=== PATIENT | female | born 1980 | race Caucasian/White ===

== ENCOUNTER 2017-09-15 09:59 | Emergency (ER) | payer BC ==
[~2017-09-15] VITALS: Ht 170.2 cm; Wt 58.1 kg
[~2017-09-15 09:59] MED LIST: ALBIPROI; AMOCLA875 PO; CODACE30; GUAPHELA PO; NAPR550
[2017-09-15] MEDS ORDERED: BIRTH CONTROL (10:21)
[2017-09-15] MEDS ORDERED: Zofran Odt4 MG SL (10:58)
[2017-09-15] MEDS ORDERED: Cheratussin AC118 ML PO (10:58)
== END 2017-09-15 11:10 | disposition home or self-care (01) ==
LOC: ER 09:59
DX: J11.1 Influenza due to unidentified influenza virus with other respiratory manifestations (principal); Z88.2 Allergy status to sulfonamides
CPT/HCPCS: 99283

== ENCOUNTER 2017-09-18 13:47 | Emergency (ER) | payer BC ==
[~2017-09-18] VITALS: Ht 170.2 cm; Wt 58.1 kg
[~2017-09-18 13:47] MED LIST changes: +BIRTH CONTROL; +Cheratussin AC118 ML PO; +Zofran Odt4 MG SL
[2017-09-18 14:18] LABS: BASOPHILS ABSOLUTE AUTO 0.01 K/mm3 (0.00-0.23); BASOPHILS PERCENT AUTO 0 % (0-2); EOSINOPHILS PERCENT AUTO 0 % (0-6); Hematocrit 43.4 % (33.0-51.0); Hemoglobin 15.4 g/dL (11.5-16.0); IMMATURE GRAN ABSOLUTE AUTO 0.01 K/mm3 (0.00-0.10); IMMATURE GRAN PERCENT AUTO 0 % (0-1); LYMPHOCYTES ABSOLUTE AUTO 1.03 K/mm3 (0.84-5.20); LYMPHOCYTES PERCENT AUTO 15 % (21-46); MONOCYTES ABSOLUTE AUTO 0.34 K/mm3 (0.16-1.47); MONOCYTES PERCENT AUTO 5 % (4-13); Mean Corpuscular HGB 30.9 pg (26.0-34.0); Mean Corpuscular HGB Conc 35.5 g/dL (31.5-36.5); Mean Corpuscular Volume 87 fL (80-100); Mean Platelet Volume 10.4 fL (9.1-12.4); NEUTROPHILS ABSOLUTE AUTO 5.58 K/mm3 (1.96-9.15); NEUTROPHILS PERCENT AUTO 80 % (41-73); Platelet Count 166 K/mm3 (150-400); RDW Coefficient Variation 12.6 % (11.7-14.2); RDW Standard Deviation 40.6 fL (35.1-46.3); Red Blood Cell Count 4.98 M/mm3 (3.80-5.20); White Blood Cell Count 6.97 K/mm3 (4.00-11.30)
[2017-09-18 14:39] LABS: Alanine Aminotransfer (ALT/SGP 18 U/L (12-78); Alk Phos 39 U/L (50-136); Anion Gap 12 mmol/L (6-16); Aspartate Aminotrans (AST/SGOT 20 U/L (12-37); Bilirubin, Total 0.4 mg/dL (0.1-1.0); Blood Urea Nitrogen 13 mg/dL (8-24); Bun/Creatinine Ratio 25.7 (12.0-20.0); CO2, Blood 24 mmol/L (21-32); Calcium, Blood 8.8 mg/dL (8.5-10.1); Chloride, Blood 99 mmol/L (98-108); Creatinine, Blood 0.51 mg/dL (0.40-1.00); Globulin, Blood 4.2 g/dL (2.2-4.0); Glomerular Filtration Rate >60 (60-); Glucose, Blood 86 mg/dL (70-99); Potassium, Blood 3.5 mmol/L (3.5-5.5); Sodium, Blood 135 mmol/L (136-145); Total Protein, Blood 8.2 g/dL (6.4-8.2)
[2017-09-18 18:56] LABS: Source, Urine Clean Catch
[2017-09-18 19:00] LABS: Appearance, Urine Clear (Clear); Bilirubin, Urine Neg (Neg); Blood, Urine 4+ (Neg); Color, Urine Yellow (P-Yellow); Glucose Qualitative, Urine Neg (Neg); Ketones, Urine 4+ (Neg); Leukocyte Esterase, Urine Neg (Neg); Nitrite, Urine Neg (Neg); Protein, Urine 2+ (Neg); Specific Gravity, Urine 1.015 (1.003-1.022); Urobilinogen, Urine NORM (Normal); pH, Urine 6.5 (5.0-8.0)
[2017-09-18 19:09] LABS: White Blood Cells, Urine 0-2 /hpf (0-5)
[2017-09-18 19:10] LABS: Bacteria Few /hpf; Squamous Epithelial Cells Few /hpf (Few)
[2017-09-18] MEDS ORDERED: AZIT250 PO (20:24)
== END 2017-09-18 20:32 | disposition home or self-care (01) ==
LOC: ER 13:47
PROVIDERS: Emergency Medicine
DX: J18.9 Pneumonia, unspecified organism (principal); Z88.2 Allergy status to sulfonamides; Z88.8 Allergy status to other drugs, medicaments and biological substances; Z79.899 Other long term (current) drug therapy
CPT/HCPCS: 36415; 71046; 74176; 80053; 81001; 81025; 83690; 85025; 96361; 96374; 96375; 96376; 99284; J1885; J2405; J7030

== ENCOUNTER → 2017-10-11 | Outpatient (CLI) | payer BC ==
[~2017-10-11] MED LIST changes: +AZIT250 PO
== END | disposition home or self-care (01) ==
LOC: LAB 10:30
DX: R10.9 Unspecified abdominal pain (principal)
CPT/HCPCS: 87086

== ENCOUNTER → 2018-10-23 | Outpatient (CLI) | payer BC ==
[2018-10-27 13:08] LABS: CHLAMYDIA TRACHOMATIS, NAA Negative (Negative); NEISSERIA GONORRHOEAE, NAA Negative (Negative)
== END ==
LOC: LAB 15:49 → LAB SHORT 15:49
PROVIDERS: Nurse Practitioner Family
DX: Z11.3 Encounter for screening for infections with a predominantly sexual mode of transmission (principal)
CPT/HCPCS: 87491; 87591

== ENCOUNTER 2019-03-18 08:47 | Day surgery (SDC) | payer BC, OTHER ==
[~2019-03-18] VITALS: Ht 167.6 cm; Wt 58.9 kg
--- NOTE | 2019-03-18 10:38 | NUR ---
03/18/19 1038 Raya Ontiveros SIMETHICONE USED DURING PROCEDURE.
== END 2019-03-18 11:20 | disposition home or self-care (01) ==
LOC: ORSCSDS 08:47
PROVIDERS: Internal Medicine Gastroenterology
PROC: 0DBE8ZX Excision of Large Intestine, Via Natural or Artificial Opening Endoscopic, Diagnostic (ICD-10-PCS; principal; 2019-03-18 10:15)
DX: K92.1 Melena (principal); R19.7 Diarrhea, unspecified; Z80.0 Family history of malignant neoplasm of digestive organs; K21.9 Gastro-esophageal reflux disease without esophagitis; K64.8 Other hemorrhoids; J45.909 Unspecified asthma, uncomplicated; Z79.899 Other long term (current) drug therapy
CPT/HCPCS: 88305; J2704; J7120

== ENCOUNTER → 2019-10-01 | Outpatient (CLI) | payer BC, OTHER | LOC: LAB 15:57 → LAB SHORT 15:57 | DX: N39.0 Urinary tract infection, site not specified (principal) | CPT/HCPCS: 87077; 87086; 87186 ==

== ENCOUNTER → 2020-01-17 | Outpatient (CLI) | payer BC, OTHER | END | disposition home or self-care (01) | LOC: LAB SHORT 10:59 → LAB EV 10:59 | DX: N39.0 Urinary tract infection, site not specified (principal) | CPT/HCPCS: 87077; 87086; 87186 ==

== ENCOUNTER → 2020-06-13 | Outpatient (CLI) | payer BC, OTHER ==
[~2020-06-13] MED LIST changes: +ACET500; +ALBU90OI INH; +Apple Cider Vi300 MG PO; +IBUP400; +PRENATAL TABLE1 EAC2 PO; +Vitamin C100 M1 PO
== END | disposition home or self-care (01) ==
LOC: LAB SHORT 07:39 → PLD 07:39
DX: N92.0 Excessive and frequent menstruation with regular cycle (principal)
CPT/HCPCS: 88305

== ENCOUNTER 2020-06-30 06:04 | Day surgery (SDC) | payer BC, OTHER ==
[~2020-06-30] VITALS: Ht 167.6 cm; Wt 62.9 kg
[~2020-06-30 06:04] MED LIST changes: -ACET500; -IBUP400
--- NOTE | 2020-06-30 07:10 | NUR ---
History, Chart, Medications and Allergies reviewed before start of procedure.Patient confirms NPO status and agrees with scheduled surgery. Patient reports completing Chlorhexadine shower X2 prior to admission to hospital.Surgical site prepped with 2% Chlorhexidine cloth wipe.
--- NOTE | 2020-06-30 11:47 | NUR ---
PAIN/NAUSEA PT NAUSEATED UPON ARRIVING TO FLOOR. MEDICATED PER ORDERS W/4MG IV ZOFRAN. PT'S PAIN TO ABD BEGAN TO INCREASE AND RATED AT 8/10. PT STATED CANNOT TAKE NARCOTICS OR TORADOL THEY CAUSE N/V. MEDICATED PER ORDERS W/OT DOSE OR 800 MG IBUPROFEN. PT REFUSED CRACKERS AND JELLO STATING DIDN'T TASTE GOOD. NOW SLEEPING.
--- NOTE | 2020-06-30 14:21 | NUR ---
NOTIFIED DR [facility] NOT STOCK AYGESTIN. PT HAS PRESCRIPTION AWAITING AT PHARMACY.
[2020-06-30] MEDS ORDERED: IBUP400 ×2 (15:31)
[2020-06-30] MEDS ORDERED: ACET500 ×2 (15:32)
--- NOTE | 2020-06-30 16:10 | NUR ---
pt reported nausea. medicated per orders w/zofran. provided warm blankets.
--- NOTE | 2020-06-30 16:41 | NUR ---
N/V PREPARING TO DC PT AND SHE BEGAN TO GET NAUSEATED. MEDICATED PER ORDERS W/4 MG IV ZOFRAN. WHEN WENT BACK TO CHECK ON PT, FOUND TEARFUL AND HAD 300 ML EMESIS. MEDICATED PER ORDERS W/12.5 MG IV PHENERGAN. PROVIDED NEW ICE PACK FOR NECK. PT RESTING BEFORE DC'ING. PT WISHES TO GO HOME.
--- NOTE | 2020-06-30 17:15 | NUR ---
PT'S NAUSEA IMPROVED. WANTED TO BE DC'D HOME DC'D IV, CATHETER INTACT. REVIEWED DC INSTRUCTIONS W/PT; VERBALIZED UNDERSTANDING. PT LEFT UNIT IN WC W/POSSESSIONS AND DC PAPERWORK IN HAND ACCOMAPNIED BY SPOUSE.
== END 2020-06-30 17:06 | disposition home or self-care (01) ==
LOC: ORSCMMR 06:04 → ORD 07:30 → ORSCMMR 07:30 → SURS 10:22 → ORSCMMR 17:06
PROVIDERS: Obstetrics & Gynecology
PROC: 0UT24ZZ Resection of Bilateral Ovaries, Percutaneous Endoscopic Approach (ICD-10-PCS; principal; 2020-06-30 07:30)
PROC: 8E0W4CZ Robotic Assisted Procedure of Trunk Region, Percutaneous Endoscopic Approach (ICD-10-PCS; principal; 2020-06-30 07:30)
PROC: 0UT94ZZ Resection of Uterus, Percutaneous Endoscopic Approach (ICD-10-PCS; principal; 2020-06-30 07:30)
PROC: 0UT74ZZ Resection of Bilateral Fallopian Tubes, Percutaneous Endoscopic Approach (ICD-10-PCS; principal; 2020-06-30 07:30)
DX: N80.3 Endometriosis of pelvic peritoneum (principal); N92.0 Excessive and frequent menstruation with regular cycle; N94.6 Dysmenorrhea, unspecified; J45.909 Unspecified asthma, uncomplicated; Z79.899 Other long term (current) drug therapy
CPT/HCPCS: 58571; S2900; 88307; A9270; J0171; J0690; J1100; J1885; J2250; J2405; J2550; J2704; J3010; J7120

== ENCOUNTER → 2020-08-11 | Outpatient (CLI) | payer BC ==
[~2020-08-11] MED LIST changes: +ACET500; +IBUP400; +ONDA4ODT MM
== END | disposition home or self-care (01) ==
LOC: LAB 15:30
DX: N76.0 Acute vaginitis (principal)
CPT/HCPCS: 87070; 87076; 87205

== ENCOUNTER 2021-04-01 07:52 | Emergency (ER) | payer BC ==
[~2021-04-01] VITALS: Ht 170.2 cm; Wt 59.0 kg
[~2021-04-01 07:52] MED LIST changes: -ONDA4ODT MM
[2021-04-01 08:21] LABS: Source, Urine Clean Catch
[2021-04-01 08:32] LABS: Appearance, Urine Clear (Clear); Bilirubin, Urine Neg (Neg); Blood, Urine Neg (Neg); Color, Urine Yellow (P-Yellow); Glucose Qualitative, Urine Neg (Neg); Ketones, Urine Neg (Neg); Leukocyte Esterase, Urine Neg (Neg); Nitrite, Urine Neg (Neg); Protein, Urine Neg (Neg); Specific Gravity, Urine 1.015 (1.003-1.022); Urobilinogen, Urine NORM (Normal)
[2021-04-01 08:46] LABS: BASOPHILS ABSOLUTE AUTO 0.04 K/mm3 (0.00-0.23); BASOPHILS PERCENT AUTO 0 % (0-2); EOSINOPHILS ABSOLUTE AUTO 0.04 K/mm3 (0.00-0.68); EOSINOPHILS PERCENT AUTO 0 % (0-6); Hematocrit 41.1 % (33.0-51.0); IMMATURE GRAN ABSOLUTE AUTO 0.01 K/mm3 (0.00-0.10); IMMATURE GRAN PERCENT AUTO 0 % (0-1); LYMPHOCYTES ABSOLUTE AUTO 1.19 K/mm3 (0.84-5.20); LYMPHOCYTES PERCENT AUTO 13 % (21-46); MONOCYTES PERCENT AUTO 3 % (4-13); Mean Corpuscular HGB 30.7 pg (26.0-34.0); Mean Corpuscular HGB Conc 34.1 g/dL (31.5-36.5); Mean Corpuscular Volume 90 fL (80-100); Mean Platelet Volume 10.8 fL (9.1-12.4); NEUTROPHILS ABSOLUTE AUTO 7.97 K/mm3 (1.96-9.15); NEUTROPHILS PERCENT AUTO 84 % (41-73); Platelet Count 242 K/mm3 (150-400); RDW Coefficient Variation 13.1 % (11.7-14.2); RDW Standard Deviation 43.5 fL (35.1-46.3); Red Blood Cell Count 4.56 M/mm3 (3.80-5.20); White Blood Cell Count 9.55 K/mm3 (4.00-11.30)
[2021-04-01 09:02] LABS: Alanine Aminotransfer (ALT/SGP 15 U/L (12-78); Albumin, Blood 4.1 g/dL (3.4-5.0); Albumin/Globulin Ratio 1.2 (0.8-1.8); Alk Phos 34 U/L (50-136); Anion Gap 4 mmol/L (6-16); Aspartate Aminotrans (AST/SGOT 6 U/L (12-37); Bilirubin, Total 0.4 mg/dL (0.1-1.0); Blood Urea Nitrogen 19 mg/dL (8-24); Bun/Creatinine Ratio 29.3 (12.0-20.0); CO2, Blood 25 mmol/L (21-32); Calcium, Blood 8.7 mg/dL (8.5-10.1); Chloride, Blood 111 mmol/L (98-108); Creatinine, Blood 0.65 mg/dL (0.40-1.00); Globulin, Blood 3.5 g/dL (2.2-4.0); Glomerular Filtration Rate >60 (60-); Glucose, Blood 99 mg/dL (70-99); Potassium, Blood 3.9 mmol/L (3.5-5.5); Sodium, Blood 140 mmol/L (136-145); Total Protein, Blood 7.6 g/dL (6.4-8.2)
[2021-04-01] MEDS ORDERED: ONDA4ODT MM (09:18)
== END 2021-04-01 09:23 | disposition home or self-care (01) ==
LOC: ER 07:52
PROVIDERS: Emergency Medicine; Physician Assistant
DX: K29.70 Gastritis, unspecified, without bleeding (principal); Z88.2 Allergy status to sulfonamides; Z88.5 Allergy status to narcotic agent; Z79.899 Other long term (current) drug therapy
CPT/HCPCS: 36415; 80053; 81003; 83690; 85025; 99284; A9270

== ENCOUNTER → 2021-04-21 | Outpatient (CLI) | payer BC ==
[~2021-04-21] MED LIST changes: +ONDA4ODT MM
== END | disposition home or self-care (01) ==
LOC: LAB 12:00 → LAB SHORT 12:00
DX: R31.9 Hematuria, unspecified (principal)
CPT/HCPCS: 87077; 87086; 87186

== ENCOUNTER → 2021-08-17 | Outpatient (CLI) | payer BC ==
[~2021-08-17] MED LIST changes: +BELPTAB PO; +Cipro500 MG PO; +ESTRADIOL (TWI1 EAC1 TD; +Flagyl500 MG PO; +Nexium40 MG PO; +PHENERGAN25 MG PR; +PROG100 PO
== END ==
LOC: LAB SHORT 18:20
DX: K21.9 Gastro-esophageal reflux disease without esophagitis (principal); R10.13 Epigastric pain
CPT/HCPCS: 87338

== ENCOUNTER 2021-08-18 07:38 | Emergency (ER) | payer BC ==
[~2021-08-18] VITALS: Ht 170.2 cm; Wt 61.2 kg
[~2021-08-18 07:38] MED LIST changes: -BELPTAB PO; -Cipro500 MG PO; -ESTRADIOL (TWI1 EAC1 TD; -Flagyl500 MG PO; -Nexium40 MG PO; -PHENERGAN25 MG PR; -PROG100 PO
[2021-08-18] MEDS ORDERED: ESTRADIOL (TWI1 EAC1 TD (08:14)
[2021-08-18] MEDS ORDERED: PROG100 PO (08:15)
[2021-08-18] MEDS ORDERED: Nexium40 MG PO (08:18)
[2021-08-18 08:41] LABS: Source, Urine Clean Catch
[2021-08-18 08:52] LABS: BASOPHILS ABSOLUTE AUTO 0.04 K/mm3 (0.00-0.23); BASOPHILS PERCENT AUTO 1 % (0-2); EOSINOPHILS ABSOLUTE AUTO 0.09 K/mm3 (0.00-0.68); EOSINOPHILS PERCENT AUTO 2 % (0-6); Hemoglobin 14.6 g/dL (11.5-16.0); IMMATURE GRAN ABSOLUTE AUTO 0.01 K/mm3 (0.00-0.10); IMMATURE GRAN PERCENT AUTO 0 % (0-1); LYMPHOCYTES ABSOLUTE AUTO 1.43 K/mm3 (0.84-5.20); LYMPHOCYTES PERCENT AUTO 26 % (21-46); MONOCYTES ABSOLUTE AUTO 0.34 K/mm3 (0.16-1.47); MONOCYTES PERCENT AUTO 6 % (4-13); Mean Corpuscular HGB 30.2 pg (26.0-34.0); Mean Corpuscular Volume 89 fL (80-100); Mean Platelet Volume 10.2 fL (9.1-12.4); NEUTROPHILS ABSOLUTE AUTO 3.63 K/mm3 (1.96-9.15); NEUTROPHILS PERCENT AUTO 66 % (41-73); Platelet Count 303 K/mm3 (150-400); RDW Coefficient Variation 12.7 % (11.7-14.2); RDW Standard Deviation 41.4 fL (35.1-46.3); Red Blood Cell Count 4.83 M/mm3 (3.80-5.20); White Blood Cell Count 5.54 K/mm3 (4.00-11.30)
[2021-08-18 09:07] LABS: Appearance, Urine Clear (Clear); Bilirubin, Urine Neg (Neg); Blood, Urine 1+ (Neg); Color, Urine Yellow (P-Yellow); Glucose Qualitative, Urine Neg (Neg); Ketones, Urine Neg (Neg); Leukocyte Esterase, Urine Neg (Neg); Nitrite, Urine Neg (Neg); Protein, Urine Neg (Neg); Specific Gravity, Urine 1.015 (1.003-1.022); Urobilinogen, Urine NORM (Normal)
[2021-08-18 09:07] LABS: Alanine Aminotransfer (ALT/SGP 19 U/L (12-78); Albumin, Blood 4.1 g/dL (3.4-5.0); Albumin/Globulin Ratio 1.1 (0.8-1.8); Alk Phos 37 U/L (50-136); Anion Gap 7 mmol/L (6-16); Aspartate Aminotrans (AST/SGOT 10 U/L (12-37); Bilirubin, Total 0.5 mg/dL (0.1-1.0); Blood Urea Nitrogen 7 mg/dL (8-24); Bun/Creatinine Ratio 10.6 (12.0-20.0); CO2, Blood 25 mmol/L (21-32); Calcium, Blood 9.4 mg/dL (8.5-10.1); Chloride, Blood 110 mmol/L (98-108); Creatinine, Blood 0.66 mg/dL (0.40-1.00); Globulin, Blood 3.6 g/dL (2.2-4.0); Glomerular Filtration Rate >60 (60-); Glucose, Blood 94 mg/dL (70-99); Potassium, Blood 3.7 mmol/L (3.5-5.5); Sodium, Blood 142 mmol/L (136-145); Total Protein, Blood 7.7 g/dL (6.4-8.2)
[2021-08-18 09:30] LABS: Red Blood Cells, Urine 0-2 /hpf (0-2); Squamous Epithelial Cells Rare /hpf (Few)
[2021-08-18] MEDS ORDERED: Flagyl500 MG PO (09:30)
[2021-08-18] MEDS ORDERED: Cipro500 MG PO (09:30)
[2021-08-18] MEDS ORDERED: PHENERGAN25 MG PR (09:30)
[2021-08-18] MEDS ORDERED: BELPTAB PO (09:30)
[2021-08-18 09:31] LABS: Bacteria Rare /hpf; Yeast/Fungi Urine Rare /hpf
== END 2021-08-18 10:48 | disposition home or self-care (01) ==
LOC: ER 07:38
PROVIDERS: Physician Assistant
DX: K52.9 Noninfective gastroenteritis and colitis, unspecified (principal); Z88.2 Allergy status to sulfonamides; Z88.5 Allergy status to narcotic agent; Z79.899 Other long term (current) drug therapy
CPT/HCPCS: 36415; 74177; 80053; 81001; 83690; 83735; 85025; 96374; 99285-25; J2405; J7030; Q9967

== ENCOUNTER 2021-09-14 12:27 | Day surgery (SDC) | payer OTHER ==
[~2021-09-14] VITALS: Ht 170.2 cm; Wt 98.0 kg
[~2021-09-14 12:27] MED LIST changes: +BELPTAB PO; +Cipro500 MG PO; +ESTRADIOL (TWI1 EAC1 TD; +Flagyl500 MG PO; +Nexium40 MG PO; +PHENERGAN25 MG PR; +PROG100 PO
== END 2021-09-14 14:38 | disposition home or self-care (01) ==
LOC: ORSCSDS 12:27
PROVIDERS: Student in an Organized Health Care Education/Training Program
PROC: 0DB58ZX Excision of Esophagus, Via Natural or Artificial Opening Endoscopic, Diagnostic (ICD-10-PCS; principal; 2021-09-14 13:45)
PROC: 0DB68ZX Excision of Stomach, Via Natural or Artificial Opening Endoscopic, Diagnostic (ICD-10-PCS; principal; 2021-09-14 13:45)
PROC: 0DB48ZX Excision of Esophagogastric Junction, Via Natural or Artificial Opening Endoscopic, Diagnostic (ICD-10-PCS; principal; 2021-09-14 13:45)
PROC: 0DB98ZX Excision of Duodenum, Via Natural or Artificial Opening Endoscopic, Diagnostic (ICD-10-PCS; principal; 2021-09-14 13:45)
DX: K21.9 Gastro-esophageal reflux disease without esophagitis (principal); R11.2 Nausea with vomiting, unspecified; R13.10 Dysphagia, unspecified; Z80.0 Family history of malignant neoplasm of digestive organs; R19.7 Diarrhea, unspecified; K44.9 Diaphragmatic hernia without obstruction or gangrene; Z79.899 Other long term (current) drug therapy
CPT/HCPCS: 88305; 88342; J2704; J7120

== ENCOUNTER → 2022-08-10 | Outpatient (CLI) | payer OTHER ==
[2022-08-10 13:33] LABS: Source, Urine Clean Catch
[2022-08-10 16:05] LABS: Appearance, Urine Hazy (Clear); Bilirubin, Urine Neg (Neg); Blood, Urine Neg (Neg); Color, Urine Yellow (P-Yellow); Glucose Qualitative, Urine Neg (Neg); Ketones, Urine Neg (Neg); Leukocyte Esterase, Urine Neg (Neg); Nitrite, Urine Neg (Neg); Protein, Urine Neg (Neg); Urobilinogen, Urine NORM (Normal)
[2022-08-10 17:08] LABS: Bacteria Many /hpf; Red Blood Cells, Urine 0-2 /hpf (0-2); Squamous Epithelial Cells Mod /hpf (Few)
== END | disposition home or self-care (01) ==
LOC: LAB SHORT 13:31
PROVIDERS: Obstetrics & Gynecology
DX: R10.9 Unspecified abdominal pain (principal); R30.0 Dysuria
CPT/HCPCS: 81001; 87086

== ENCOUNTER 2023-04-30 19:06 | Emergency (ER) | payer OTHER, BC ==
[~2023-04-30] VITALS: Ht 170.2 cm; Wt 61.2 kg
[2023-04-30 19:22] VITALS: BP 125/89
[2023-04-30 19:36] LABS: Source, Urine Clean Catch
[2023-04-30 19:47] LABS: Appearance, Urine Clear (Clear); Bilirubin, Urine Neg (Neg); Blood, Urine Neg (Neg); Glucose Qualitative, Urine Neg (Neg); Ketones, Urine Neg (Neg); Leukocyte Esterase, Urine Neg (Neg); Nitrite, Urine Neg (Neg); Protein, Urine Neg (Neg); Urobilinogen, Urine NORM (Normal)
[2023-04-30 19:54] LABS: Color, Urine Pale Yellow (P-Yellow)
== END 2023-04-30 22:21 | disposition left against medical advice (07) ==
LOC: ER 19:06
PROVIDERS: Student in an Organized Health Care Education/Training Program
DX: R30.9 Painful micturition, unspecified (principal); M54.9 Dorsalgia, unspecified; Z53.21 Procedure and treatment not carried out due to patient leaving prior to being seen by health care provider
CPT/HCPCS: 81003

== ENCOUNTER → 2023-08-02 | Outpatient (CLI) | payer BC | END | disposition home or self-care (01) | LOC: LAB 12:29 → LAB SHORT 12:29 | DX: R30.0 Dysuria (principal) | CPT/HCPCS: 87086 ==

== ENCOUNTER 2024-11-03 18:08 | Emergency (ER) | payer BC ==
[~2024-11-03] VITALS: Ht 170.2 cm; Wt 61.2 kg
[~2024-11-03 18:08] MED LIST changes: +LANSOPRAZOLE30 MG PO
[2024-11-03 19:11] LABS: Source, Urine Voided
[2024-11-03 19:16] LABS: Bilirubin, Urine Neg (Neg); Blood, Urine Neg (Neg); Color, Urine Yellow (P-Yellow); Glucose Qualitative, Urine Neg (Neg); Ketones, Urine Neg (Neg); Leukocyte Esterase, Urine Neg (Neg); Nitrite, Urine Neg (Neg); Protein, Urine Neg (Neg); Urobilinogen, Urine NORM (Normal)
[2024-11-03 19:28] LABS: BASOPHILS ABSOLUTE AUTO 0.07 K/mm3 (0.00-0.23); BASOPHILS PERCENT AUTO 1 % (0-2); EOSINOPHILS ABSOLUTE AUTO 0.16 K/mm3 (0.00-0.68); EOSINOPHILS PERCENT AUTO 2 % (0-6); Hematocrit 43.8 % (33.0-51.0); Hemoglobin 15.1 g/dL (11.5-16.0); IMMATURE GRAN ABSOLUTE AUTO 0.03 K/mm3 (0.00-0.10); IMMATURE GRAN PERCENT AUTO 0 % (0-1); LYMPHOCYTES ABSOLUTE AUTO 2.26 K/mm3 (0.84-5.20); LYMPHOCYTES PERCENT AUTO 21 % (21-46); MONOCYTES PERCENT AUTO 6 % (4-13); Mean Corpuscular HGB 30.8 pg (26.0-34.0); Mean Corpuscular HGB Conc 34.5 g/dL (31.5-36.5); Mean Corpuscular Volume 89 fL (80-100); Mean Platelet Volume 10.1 fL (9.1-12.4); NEUTROPHILS PERCENT AUTO 71 % (41-73); Platelet Count 310 K/mm3 (150-400); RDW Coefficient Variation 12.7 % (11.7-14.2); RDW Standard Deviation 41.9 fL (35.1-46.3); Red Blood Cell Count 4.91 M/mm3 (3.80-5.20); White Blood Cell Count 10.82 K/mm3 (4.00-11.30)
[2024-11-03 19:33] LABS: Appearance, Urine Clear (Clear)
[2024-11-03 19:56] LABS: Albumin, Blood 4.7 g/dL (3.4-5.0); Albumin/Globulin Ratio 1.3 (0.8-1.8); Bilirubin, Total 0.3 mg/dL (0.1-1.0); Bun/Creatinine Ratio 24.5 (12.0-20.0); Calcium, Blood 9.5 mg/dL (8.5-10.1); Creatinine, Blood 0.61 mg/dL (0.40-1.00); Globulin, Blood 3.6 g/dL (2.2-4.0); Potassium, Blood 3.6 mmol/L (3.5-5.5); Total Protein, Blood 8.3 g/dL (6.4-8.2)
[2024-11-03 21:37] VITALS: BP 130/77
[2024-11-03] MEDS ORDERED: ACET500 PO (21:55)
[2024-11-03] MEDS ORDERED: FAMO20 PO (21:55)
== END 2024-11-03 22:09 | disposition home or self-care (01) ==
LOC: ER 18:08
PROVIDERS: Student in an Organized Health Care Education/Training Program
DX: R10.13 Epigastric pain (principal); K21.9 Gastro-esophageal reflux disease without esophagitis; Z90.710 Acquired absence of both cervix and uterus; Z90.79 Acquired absence of other genital organ(s); Z90.722 Acquired absence of ovaries, bilateral; Z98.890 Other specified postprocedural states; Z88.2 Allergy status to sulfonamides; Z88.5 Allergy status to narcotic agent; Z79.899 Other long term (current) drug therapy
CPT/HCPCS: 76705; 80053; 81003; 83605; 83690; 85025; 93005; 93010; 99284-25

== ENCOUNTER → 2025-05-07 | Outpatient (CLI) | payer BC ==
[~2025-05-07] MED LIST changes: +ACET500 PO; +FAMO20 PO
== END ==
LOC: LAB SHORT 13:41 → LAB 13:41
DX: N39.0 Urinary tract infection, site not specified (principal)
CPT/HCPCS: 87077; 87086; 87186